=== PATIENT | female | born 1990 | race African-American/Black ===

== ENCOUNTER 2016-08-24 09:07 | Emergency (ER) | payer BC ==
[~2016-08-24] VITALS: Ht 165.1 cm; Wt 73.9 kg
[~2016-08-24 09:07] MED LIST: CEPH-264 PO; CLIN-44 PO; HYDR-971 PO; METR500T PO; MUPI22OI2 TP; NITR100C62 PO; PRED20TA PO; SULF1TAB24 PO
[2016-08-24 10:44] VITALS: BP 116/70
[2016-08-24] MEDS ORDERED: PSEUDOEPHEDRINE 30 MG TABLET. PO STA (10:59)
[2016-08-24] MEDS ORDERED: FLUTICASONE 50MCG/NASAL SPRAY 16GM BOTTLE. NS SCH (11:03)
[2016-08-24] MEDS ORDERED: AMOX875T PO (11:11)
[2016-08-24] MEDS ORDERED: PSEU120T58 PO (11:11)
[2016-08-24] MEDS ORDERED: LIDO20SO PO (11:11)
--- NOTE | 2016-08-24 11:11 | PHYS DOC ---
Past Medical History Past Medical History: No Pertinent History Past Surgical History: Other Additional Past Surgical Histo: DandC X 1 Alcohol Use: None Drug Use: None Adult General Chief Complaint Chief Complaint: SORE THROAT HPI HPI Patient is a 26 year old female who presents with a sore throat coughing and nasal congestion that began one week ago. Patient denies any fever. She states her daughter was seen in the ED yesterday for an ear infection. Review of Systems Review of Systems Constitutional: see HPI Eyes: Denies change in visual acuity, redness, or eye pain [] HENT: nasal congestion and sore throat [] Respiratory: cough Cardiovascular: No additional information not addressed in HPI [] GI: Denies abdominal pain, nausea, vomiting, bloody stools or diarrhea [] : Denies dysuria or hematuria [] Musculoskeletal: Denies back pain or joint pain [] Integument: Denies rash or skin lesions [] Neurologic: Denies headache, focal weakness or sensory changes [] Endocrine: Denies polyuria or polydipsia [] Allergies Allergies Allergies Coded Allergies Type Severity Reaction Last Updated Verified hydromorphone Allergy Intermediate Rash 05/11/16 Yes Physical Exam Physical Exam Constitutional: Well developed, well nourished, no acute distress, non-toxic appearance. [] HENT: Normocephalic, atraumatic, bilateral external ears normal, oropharynx moist, no oral exudates, nose normal. [] Posterior pharynx with moderate erythema, and small amount of exudate Eyes: PERRLA, EOMI, conjunctiva normal, no discharge. [] Neck: Normal range of motion, no tenderness, supple, no stridor. [] Cardiovascular:Heart rate regular rhythm, no murmur [] Lungs & Thorax: Bilateral breath sounds clear to auscultation [] Abdomen: Bowel sounds normal, soft, no tenderness, no masses, no pulsatile masses. [] Skin: Warm, dry, no erythema, no rash. [] Back: No tenderness, no CVA tenderness. [] Extremities: No tenderness, no cyanosis, no clubbing, ROM intact, no edema. [] Neurologic: Alert and oriented X 3, normal motor function, normal sensory function, no focal deficits noted. [] Psychologic: Affect normal, judgement normal, mood normal. [] Current Patient Data Vital Signs Vital Signs Date Time Temp Pulse Resp B/P Pulse Ox O2 Delivery O2 Flow Rate FiO2 08/24/16 10:44 98.5 83 17 94 Room Air 98.5 EKG EKG [] Radiology/Procedures Radiology/Procedures [] Course & Med Decision Making Course & Med Decision Making Pertinent Labs and Imaging studies reviewed. (See chart for details) Patient is in the ED with sore throat coughing and nasal congestion. She states she is not able to get any decongestant because she lost her ID and Urecholine ID to get a decongestant. I ordered Flonase for her. Her strep test is negative. Her throat is very red with pus pockets. D/C with amoxicillin. Encouraged to try and get an ID and get a decongestant [id number]. Dragon Disclaimer Dragon Disclaimer This electronic medical record was generated, in whole or in part, using a voice recognition dictation system. Departure Departure Impression: Primary Impression: Cough Additional Impressions: Pharyngitis, acute Upper respiratory infection Disposition: HOME, SELF-CARE Condition: STABLE Referrals: NO PCP (PCP) Follow-up with your own doctor in one week Patient Instructions: Cough, Adult, Upper Respiratory Infection, Child, Viral and Bacterial Pharyngitis, [id number] Additional Instructions: You were seen for a cough upper respiratory infection and pharyngitis which is a throat infection, complete your antibiotics. Take Tylenol every 4 hours and Motrin every 6 hours as needed for pain. Push fluids. Come back to the emergency room if symptoms worsen. Scripts Lidocaine Hcl (Lidocaine Hcl Viscous)20 Mg/1 Ml Solution5 Ml PO TID #100 ML Prov:ERIK RAM APRN 08/24/16 Amoxicillin 875 Mg Tablet1 Tab PO BID #20 TAB Prov:ERIK RAM APRN 08/24/16 Pseudoephedrine Hcl (Pseudoephedrine)120 Mg Tablet.er1 Tab PO BID #30 TAB Prov:ERIK RAM APRN 08/24/16 Problem Qualifiers Additional Impressions: Pharyngitis, acute Pharyngitis/tonsillitis etiology: unspecified etiology Qualified Code: J02.9 - Acute pharyngitis, unspecified Upper respiratory infection URI type: unspecified URI Qualified Code: J06.9 - Acute upper respiratory infection, unspecified ERIK RAM APRN Aug 24, 2016 11:11
[2016-08-24 11:30] LABS: NEGATIVE OBC STREP NEG; POSITIVE OBC STREP POS
== END 2016-08-24 11:25 | disposition home or self-care (01) ==
LOC: ER 09:07
DX: J06.9 Acute upper respiratory infection, unspecified (principal); J02.9 Acute pharyngitis, unspecified; Z88.5 Allergy status to narcotic agent
CPT/HCPCS: 87070; 87880; 99283